=== PATIENT | male | born 1985 | race African-American/Black ===

== ENCOUNTER 2017-10-04 05:11 | Day surgery (SDC) | payer OTHER ==
[~2017-10-04] VITALS: Ht 172.7 cm; Wt 120.2 kg
[2017-10-04] MEDS ORDERED: NAPROSYN500 MG PO (05:51)
[2017-10-04 06:00] VITALS: BP 141/80; Ht 172.7 cm; Wt 120.2 kg
[2017-10-04] MEDS ORDERED: PERCOCET 5-3251 TAB PO (09:21)
[2017-10-04] MEDS ORDERED: DURICEF500 MG PO (09:21)
--- NOTE | 2017-10-04 12:13 | NUR ---
1030 IV DC WITH CATHER TIP INTACT
--- NOTE | 2017-10-04 13:21 | OP ---
PATIENT NAME: PEDRO ZELAYA MEDICAL RECORD: [id number] :87 LOCATION:[facility] ADMISSION DATE: SURGEON: HEIDI GREEN DO DATE OF OPERATION: 10/04/2017 PROCEDURE PERFORMED: Right fourth and fifth metacarpal shaft open reduction internal fixation. PREOPERATIVE DIAGNOSIS: Right fourth and fifth metacarpal shaft fractures. POSTOPERATIVE DIAGNOSIS: Right fourth and fifth metacarpal shaft fractures. INDICATIONS: Mr. Zelaya is a 32-year-old right hand dominant male who struck something while he was in group home and sustained right fourth and fifth metacarpal fractures that were severely angulated and required open reduction internal fixation. He was scheduled for the procedure today. DESCRIPTION OF PROCEDURE: The patient was taken to the operative suite, given 2 grams Ancef preoperatively, laid in supine position, given a general anesthetic and the right arm was prepped and draped in a sterile fashion. A tourniquet had been placed above the elbow prior to prep and drape, a timeout was performed, everyone was agreement to correct side, site and patient. Once this was done, Esmarch was used to exsanguinate the right upper extremity, tourniquet was inflated. The tourniquet was up for 64 minutes total during the procedure. An incision between the fourth and fifth metacarpals was made. Careful dissection was made down to each of the metacarpals. Fracture sites were cleared. We first attempted to plate the fifth metacarpal and then went to the fourth metacarpal to provide more stability. The fourth metacarpal was reduced and a 5-hole plate was placed from [employer] was placed on the patient. First the proximal screws were placed and then the distal screws showing a nice reduction. They were tightened down on the AP and lateral. Then, attention was drawn back to the fifth metacarpal. A plate was placed more on the ulnar side of the bone. As reduction was made, the plate was first secured with 2 screws proximally and then 2 screws distally and this again was [employer]. Once this was done, the tourniquet was let down. There was minimal blood loss and no complications. Tourniquet was let down and any bleeders were coagulated that time with Bovie. The wound was then irrigated and 5-0 Monocryl was used in inverted interrupted fashion to approximate the skin and then 4-0 nylon was ran on the skin to close it. Adaptic, 4 x 4, cast padding was placed over the hand and a small volar splint was placed on the patient leaving the fingers free, so he can move them and an Gustavo wrap was placed over that. The patient was awakened and taken to recovery in stable condition. TRANSINT:[id number] Voice Confirmation ID: [id number] DOCUMENT ID: [id number] HEIDI GREEN DO at 1321 CC: [id number] DICTATION DATE: 10/04/17924 WINDOWS INFRASTRUCTURE ENGINEER: 10/04/17 1254 [facility] 10/04/17 [facility] [address] [place] [address]
== END 2017-10-04 11:50 | disposition home or self-care (01) ==
LOC: D.OPS 05:11
DX: S62.324A Displaced fracture of shaft of fourth metacarpal bone, right hand, initial encounter for closed fracture (principal); S62.326A Displaced fracture of shaft of fifth metacarpal bone, right hand, initial encounter for closed fracture; W22.8XXA Striking against or struck by other objects, initial encounter; Y92.149 Unspecified place in prison as the place of occurrence of the external cause; Z01.812 Encounter for preprocedural laboratory examination